=== PATIENT | male | born 1960 | race Caucasian/White ===

== ENCOUNTER → 2025-03-01 08:15 | Outpatient (REF) | payer SELFPAY | LOC: HWRAD 08:15 | PROVIDERS: ATTENDING PHYSICIAN Student in an Organized Health Care Education/Training Program; FAMILY PHYSICIAN Physician Assistant Medical | DX: R06.02 Shortness of breath (principal) | CPT/HCPCS: 75571 ==

== ENCOUNTER → 2025-03-03 08:06 | Outpatient (REF) | payer OTHER, SELFPAY | LOC: HWRCS 08:06 | PROVIDERS: ATTENDING PHYSICIAN Student in an Organized Health Care Education/Training Program; FAMILY PHYSICIAN Physician Assistant Medical | DX: R06.02 Shortness of breath (principal) | CPT/HCPCS: 93306 ==

== ENCOUNTER 2025-03-16 12:57 | Inpatient (IN) | payer OTHER, SELFPAY ==
[2025-03-16] VITALS (7 sets, daily range): BP systolic 118–152; BP diastolic 68–89; BMI 36.3
[2025-03-16 11:48] LABS: Hematocrit 42.5 % (39.0-52.0); Hemoglobin 14.9 g/dL (13.0-18.0); Mean Corp Hgb Conc. 35.1 g/dL (33.0-37.0); Mean Corpuscular Volume 84.8 fL (80.0-94.0); Nucleated Red Blood Cells % 0 % (-); Platelet Count 217 10^3/uL (130-400); Red Cell Dist. Width 12.3 % (11.5-14.5)
--- NOTE | 2025-03-16 11:50 | W.PN.CD ---
Addendum entered and electronically signed by Dillon Borrero MD 03/16/25 13:37:
I saw and evaluated the patient, and I provided the substantive portion of the medical decision making.
I reviewed and agree with the note by Nara Horvath and it accurately reflects our care.
I personally performed the medical decision making of the this encounter and my assessment and plan is below:
65-year-old presented for evaluation of dyspnea on exertion. Stress echocardiogram he had a high risk result with abnormal EKG changes and reproducible symptoms, inferior wall not fully evaluated.
Regular rate and rhythm with normal S1-S2 no murmur exams were appreciated lungs were clear to auscultation bilaterally is alert and oriented x 3 no lower extremity edema was noted.
Stress echocardiogram reviewed above.
Dyspnea on exertion with chest tightness: Suspicious for ischemic etiology, high risk stress test result above. Referred for urgent catheterization. Aspirin to be given now. Further OMT pending results.
Hyperlipidemia: Continue high-dose statin.
Hypertension: Typically on hydrochlorothiazide can transition to OMT depending on cath result.
Plan discussed with Dr. Stephens who agrees for catheterization today.
Original Note:
Today's Communication / Plan
-
*SEE SCANNED H&P*
Cardiac catheterization today
Impression / Plan
-
I/P: 65M with HTN presented as an outpatient with [facility]. Stress echocardiogram test revealed high risk. He is an aggressive non smoker and does not consume EtOH.
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
High risk stress test
- Inferior wall cannot be seen, significant EKG changes with chest pain
- Echocardiogram as below without acute findings
- Cardiac catheterization today
Dyslipidemia
- 08/2024: TC 173, HDL 29, LDL 118, TG 145
- Rosuvastatin 20 mg started after calcium score
Elevated coronary artery calcium score, started on ASA and rosuvastatin 20 mg
HTN, HCTZ held, follow
SUBJECTIVE:
Denies CP, dizziness, and SOB.
DATA:
TTE, 03/03/2025:
1. Left ventricular ejection fraction is normal with an ejection fraction of 57 % by Mann's biplane method of discs.
2. Right ventricular size and systolic function are within normal limits.
3. No significant valvular disease.
4. There are no prior studies available for comparison.
CT Coronary Calcium Score, 03/01/2025:
Total 1802.53 (LM to 32.76, LAD 308.26, LCx 257.19, RCA 96.56, PDA 17.76)
Holter (Rienzi), 10/21/2024:
1. Sinus rhythm throughout the monitoring period without evidence of atrial fibrillation.
2. Rare ventricular ectopy.
3. Rare supraventricular ectopy.
4. No significant pauses of evidence of AV block.
5. Symptoms correlated to sinus rhythm with PACs.
Physical Exam
Vital Signs/Labs
Vital Signs
Temp Pulse Resp BP Pulse Ox
98.5 F 74 16 130/80 98
03/16/25 11:28 03/16/25 11:28 03/16/25 11:28 03/16/25 11:28 03/16/25 11:28
03/16/25 11:40
Physical Exam
Constitutional: No acute distress and Comfortable
EENT: Anicteric and Moist mucous membranes
Cardiovascular: Rhythm & rate is regular and Pedal edema is absent
Respiratory: Respiratory effort normal and Lungs clear to auscul.
GI: Soft, Distention absent, Flat and Non tender
Neuro/Psych: AO x 3
Other: Skin (warm and dry)
Data Reviewed
-
Date of Service: March 16, 2025
EKG: Report Reviewed by me and Ordered by me
Echo: Report Reviewed by me
Labs: Labs Reviewed by me
Old Records: Reviewed
[2025-03-16 12:01] LABS: INR 1.00; PT 13.7 Sec (11.4-14.6)
[2025-03-16 12:05] LABS: ALT (SGPT) 29 U/L (0-50); AST (SGOT) 27 U/L (17-59); Albumin 4.9 g/dl (3.5-5.0); Alkaline Phosphatase 54 U/L (38-126); Blood Urea Nitrogen 14 mg/dl (9-20); Calcium 9.6 mg/dl (8.4-10.2); Carbon Dioxide 28 mmol/L (22-30); Chloride 105 mmol/L (98-107); Glucose 104 mg/dl (70-99); Potassium 4.1 mmol/L (3.5-5.1); Sodium 140 mmol/L (135-145); Total Protein 8.2 g/dl (6.3-8.2); eGFR > 60.00
[2025-03-16 12:17] LABS: Troponin I < 0.012 ng/ml
[2025-03-16] MEDS: LOW STRENGTH ASPIRIN 324 MG PO (12:22)
--- NOTE | 2025-03-16 12:40 | ED.GENMED ---
History of Present Illness
General
Chief Complaint: Chest Pain
Source: patient
Exam Limitations: none
Time Seen by Provider: 03/16/25 12:33
Nursing documentation reviewed up to this point in time: agreed with
Course
Orders/Labs/Results
Orders:
Orders
03/16/25 11:27
Electrocardiogram (*1) Urgent
Reason for Study: Chest Pain
EKG- Treatment ONCE
03/16/25 11:40
Complete Blood Count/With Diff Urgent
Comprehensive Metabolic Panel Urgent
Prothrombin Time Urgent
Troponin I Urgent
03/16/25 11:45
Aspirin Chewable [Low Strength Aspirin] 324 mg PO NOW STA
03/16/25 11:46
Admit/Transfer Patient As Directed
Co-Sign Provider:
Level of Care: Inpatient admission
Assign to:: IVU
Physician / Group: [facility]
Diagnosis: Chest pain
Reason for Hospitalization: High risk stress test with chest pain
Expected length of stay greater than two midnights?: Yes
ELOS- Estimated Length of Stay in days: 3
I certify the patient meets the requirements for IP care: Yes
PRN Pain Medication Management As Directed
May give lesser potent ordered pain med per pt: Yes
preference::
Protocol:: Medication orders for pain may be administered in a
manner that supports deferring to patient preference
when the pt is:
- Requesting an ordered lesser potent pain medication.
Least to most potent pain medications are defined
as: acetaminophen < NSAID < tramadol < opioids
(morphine, oxycodone, hydromorphone).
- Requesting a lesser dose of the same medication IF
ORDERED.
- Requesting a less intrusive route of administration
if both routes are prescribed by the provider (PO <
IV).
03/16/25 11:47
Code Status As Directed
Resuscitation Status: Full Code
03/16/25 12:31
Fentanyl Citrate/Pf [Sublimaze] 100 mcg .ROUTE .STK-MED ONE
Heparin 10,000 units .ROUTE .STK-MED ONE
Heparin 1000 Units/500 ml [Heparin] 1,000 units in 500 ml .ROUTE .STK-MED
Heparin Sodium,Porcine/Ns/Pf [Heparin 2000 Units/1000 ml] 2,000 unit in 1,000 ml .ROUTE .STK-MED
Lidocaine HCl/Pf [Xylocaine-Mpf 1% Vial] 50 mg .ROUTE .STK-MED ONE
Midazolam HCl [Versed] 2 mg .ROUTE .STK-MED ONE
Verapamil Injectable [Isoptin/Verapamil Injection] 5 mg .ROUTE .STK-MED ONE
03/16/25 12:32
Nitroglycerin [Tridil] 1,500 mcg .ROUTE .STK-MED ONE
Abnormal Lab Results
03/16/25
11:40
Glucose 104 H mg/dl
(70-99)
03/16/25 11:40
03/16/25 11:40
Vital Signs
Initial and Last Documented VS:
Initial Vital Signs
Temp Pulse Resp BP Pulse Ox
36.9 C 74 16 130/80 98
03/16/25 11:28 03/16/25 11:28 03/16/25 11:28 03/16/25 11:28 03/16/25 11:28
Last Documented Vital Signs
Temp Pulse Resp BP Pulse Ox
36.9 C 67 18 118/68 98
03/16/25 11:28 03/16/25 12:15 03/16/25 12:15 03/16/25 12:12 03/16/25 11:28
*Pulse Oximetry
SaO2: 98
Oxygen Mode of Delivery: Room air
ED Attending Note
-
Portions of this chart may have been created with voice recognition software.� Occasional wrong word or��sound alike� substitutions may have occurred due to the inherent limitations of voice recognition software.
Discharge Plan
Departure
Patient Disposition: Admit
Date of Disposition: 03/16/25
Time of Disposition: 12:35
Admit to: Telemetry
Admit to doctor: vaibhav
Presentation/result/management discussed w/ accepting MD/DO: vaibhav
Discharge Problem:
Positive cardiac stress test
Prescriptions:
No Action
multivitamin Tablet
1 tab PO DAILY
aspirin 81 mg Tablet,Chewable
81 mg PO DAILY
hydrochlorothiazide 25 mg tablet
25 mg PO DAILY
rosuvastatin 20 mg tablet
20 mg PO HS
[id number] [krill oil] 960-38-49-50 mg Capsule
2 cap PO DAILY
Referrals:
Asif Purvis PA-C [Family Provider]
Interventions
Interventions:
*Risk Screen - Suicide Last Done: 03/16/25 12:17
*General Assessment Last Done: 03/16/25 12:17
*Neglect/Abuse Screening Last Done: 03/16/25 12:17
*ED- Fall Risk Assessment Last Done: 03/16/25 12:17
*ED COVID-19 Vaccine History Last Done: 03/16/25 12:17
ED- Cardiac Assessment Last Done: 03/16/25 12:20
Discharge Date and Time
Print Language: PASHTO
[2025-03-16 13:36] LABS: ACT-LR - POC 356 Seconds (116-155)
[2025-03-16 14:05] LABS: ACT-LR - POC 366 Seconds (116-155)
[2025-03-16 14:15] LABS: ACT-LR - POC 265 Seconds (116-155)
--- NOTE | 2025-03-16 14:21 | ITS.CL.ANGIO ---
Ditch Repairer - Angioplasty
Angioplasty
Procedure Report:
CARDIAC CATHETERIZATION REPORT
Date of Procedure: 03/16/2025
Referring: Mini Borrero M.D.
INDICATION: Accelerating angina, high risk stress test.
PROCEDURE:
1. Left heart catheterization.
2. Coronary angiography.
3. Successful PCI of the culprit mid RCA lesion.
4. Successful PCI of the proximal RPDA.
5. Successful PCI of the mid RPDA.
A total of 76 minutes of procedural/moderate sedation was utilized. An independent medical terminologist was present to assist with and help manage the patient's level of consciousness and physiologic status.
ACCESS:
1. 6 [place] right radial artery using a modified Seldinger technique.
CATHETERS:
1. 5 [place] JR4.
2. 5 [place] JL 3.5.
3. 6 [place] EBU 3.5 guiding catheter.
4. 6 [place] JR4 guiding catheter.
HEMODYNAMIC DATA
Weight (kg): 117.9
AO (s/d/x, mmHg): 116/73/91
LV (s/x mmHg): 121/15
LEFT VENTRICULOGRAPHY: Not performed.
CORONARY ANGIOGRAPHY
Dominance: Right.
Left Main: Normal size, bifurcating vessel. There is no coronary artery disease.
LAD: Normal size vessel giving rise to 1 significant diagonal. There is a 50-60% lesion in the mid LAD immediately after the origin of the first diagonal.
Ramus: Congenitally absent.
Circumflex: Normal size, nondominant vessel giving rise to 2 obtuse marginals. OM1 is a small to medium size (1.5-2 mm) vessel with minor luminal irregularities. The second obtuse marginal is a medium to large size vessel supplying the majority
of the inferolateral wall. There is a 30-40% lesion in the proximal margin of OM1.
RCA: Large size, dominant vessel with a significant posterolateral arcade. There is a culprit 90% lesion in the mid RCA. There is a 70-80% lesion in the proximal RPDA. There is a hazy, 75% lesion in the mid RPDA.
INTERVENTION(S)
1. Successful IFR of the 50-60% mid LAD lesion, demonstrating nonocclusive disease (IFR = 0.93).
2. Successful PCI of the culprit 90% mid RCA lesion (Medtronic [place] 3.0 x 18 GENE, postdilated with a 3.0 NC balloon) with reduction in stenosis to 0%, maintaining TOMAS-3 flow.
3. Successful PCI of the hazy 75% mid RPDA lesion (Medtronic [place] 2.0 x 12 GENE) with reduction in stenosis to 0%, maintaining TOMAS-3 flow.
4. Successful PCI of the 70-80% proximal RPDA lesion (Medtronic [place] 2.5 x 18 GENE, postdilated with a 2.5 NC balloon) with reduction in stenosis to 0%, maintaining TOMAS-3 flow.
Narrative:
The decision was made to perform physiologic testing. The diagnostic catheter was removed over a wire and exchanged for a(n) 6 [place] EBU 3.5 guiding catheter. The guiding catheter was advanced into the ascending aorta and seated in the left main
coronary artery. Additional heparin was given to obtain an ACT greater than 250 seconds. An iFR wire was zeroed outside of the body, then inserted into the guiding sheath. The wire was advanced and the transducer was normalized just outside of the
guiding catheter tip. The wire was advanced into the mid LAD, beyond the 50-60% lesion. Three iFR measurements were taken. The lesion was determined to be nonocclusive (0.93).
We then turned our attention to the right coronary artery. The decision was made to proceed with percutaneous coronary intervention. The 6 [place] EBU 3.5 guiding catheter was removed over a wire and a 6Fr JR4 guiding catheter was advanced to the
aortic root and seated in the right coronary artery. Additional heparin was given and a Power Turn Flex wire was advanced into the distal RPDA. The 90% culprit mid RP CA lesion was predilated with a 2.0 x 12 semi-compliant balloon to 12 zuly. The
balloon was then advanced and the 70-80% proximal RPDA lesion was treated with angioplasty to 12 zuly.
Initially, we attempted to treat the distal lesion first. The semi-compliant balloon was removed and a Medtronic [place] 2.5 x 18 drug-eluting stent was advanced. Unfortunately, the stent would not advance beyond the culprit lesion in spite
of predilation. The stent was withdrawn and the GuideLiner was advanced over the 2.0 x 12 semicompliant balloon. Once again, the 2.5 x 18 drug-eluting stent was advanced, this time passing by the culprit lesion but failed to cross the proximal
RPDA lesion due to guide support and push ability. The decision was made to withdraw the stent and treat the culprit mid RCA lesion first.
A Medtronic [place] 3.0 x 18 drug-eluting stent was advanced into the mid RCA. After confirming position, the stent was deployed at 12 zuly. The stent balloon was removed. A 3.0 x 12 noncompliant balloon was advanced into the stent and the
stent was postdilated to 15 zuly. After postdilated the stent, the GuideLiner was used to sheath the balloon and advanced into the distal RCA/proximal RPDA.
With the GuideLiner in place, we were able to more keenly observe the RPDA lesions, also getting a better sense of a hazy, 75% lesion in the mid RPDA. The decision was made to also treat the mid RPDA lesion. The 2.0 x 12 semicompliant balloon was
advanced into the mid RPDA and the lesion was dilated to 12 zuly. We took this opportunity to more aggressively dilate the proximal RPDA lesion as well.
The semicompliant balloon was withdrawn and a Medtronic [place] 2.0 x 12 drug-eluting stent was advanced into the mid RPDA. The stent was deployed at 12 atmospheres. The stent balloon was removed.
We then turned our attention to the proximal RPDA lesion. The Medtronic [place] 2.5 x 18 drug-eluting stent was advanced for a third time, this time passing into the proximal RPDA with relative ease. Meticulous care was taken while
positioning the stent, ensuring that the entire length of the proximal RPDA lesion was covered. When we were satisfied with our position, the stent was deployed to 12 zuly. A 2.5 x 12 noncompliant balloon was advanced into the stent and the stent
was postdilated to 14 atmospheres.
Angiography was performed in orthogonal views, confirming good stent expansion and an excellent angiographic result. The coronary wire was withdrawn and the guide was disengaged from the artery. The catheter was removed over a standard J-wire.
Closure Device: Vascular band.
Radiation (mGy): 1675.19
DAP (cm2.Gy): 101.66
Fluoroscopy time (minutes): 14.3
CONCLUSIONS
1. Right dominant circulation with a 30-40% lesion in the proximal margin of OM1, a nonocclusive 50-60% lesion in the mid LAD (IFR = 0.93) and tandem occlusive lesions in the RCA, notably a 90% culprit mid RCA lesion status post successful PCI
(Medtronic [place] 3.0 x 18 GENE, postdilated with a 3.0 NC balloon), a 70-80% proximal RPDA lesion status post successful PCI (Medtronic [place] 2.5 x 18 GENE, postdilated with a 2.5 NC balloon) and a hazy, 75% mid RPDA lesion status post
successful PCI (Medtronic [place] 2.0 x 12 GENE), with reduction in all treated stenoses to 0%, maintaining TOMAS-3 flow.
2. Mildly elevated filling pressures (LVEDP = 15 mmHg at 117.9 kg).
RECOMMENDATIONS:
1. Expectant management after cardiac catheterization via right radial approach.
2. Limited weight bearing on the right for one week.
3. Dual antiplatelet therapy with aspirin and clopidogrel for at least 12 months, followed by aspirin indefinitely.
4. Aggressive secondary prevention with high-dose, high potency statin. Goal LDL <55.
5. OMT/GDMT as hemodynamics will tolerate.
6. Transthoracic echocardiogram ordered and pending.
7. Referral to cardiac rehab.
Copy to: Mini Borrero M.D., Neel Phoenix M.D., Asif Purvis PA-C
Tre Dc DO, FACC, FACP
--- NOTE | 2025-03-16 15:03 | PTCARENOTE ---
Rec'd report from Michela; rec'd pt AAOX3 w/no c/o CP or SOB; Pt w/VSS w/HR 70's & SR on telemetry monitoring. Pt w/R radial band intact w/no signs or symptoms of bleeding or hematoma. Pt instructed on RUE restrictions & bedrest restriction for 1 hr
post cath. Pt verbalized his understanding. Pt w/call esquivel within reach & plan of care ongoing.
--- NOTE | 2025-03-16 16:09 | CM ---
Chart reviewed. Patient is independent of ADLS, lives with his in a split level, [address], 0 DME. Plan is to return home. CM to follow
[2025-03-16] MEDS: CRESTOR 20 MG PO (22:06)
[2025-03-17 04:10] VITALS: BP 132/74
[2025-03-17 04:44] LABS: Hematocrit 38.1 % (39.0-52.0); Hemoglobin 13.4 g/dL (13.0-18.0); Mean Corp Hgb Conc. 35.2 g/dL (33.0-37.0); Mean Corpuscular Volume 84.5 fL (80.0-94.0); Platelet Count 194 10^3/uL (130-400); Red Cell Dist. Width 12.3 % (11.5-14.5)
[2025-03-17 05:06] LABS: Blood Urea Nitrogen 11 mg/dl (9-20); Calcium 8.8 mg/dl (8.4-10.2); Carbon Dioxide 26 mmol/L (22-30); Chloride 107 mmol/L (98-107); Estimated Creatinine Clearance > 125 ml/min; Glucose 106 mg/dl (70-99); HDL Cholesterol 27 mg/dl; LDL Cholesterol, Calculated 60 mg/dl; Potassium 3.6 mmol/L (3.5-5.1); Sodium 140 mmol/L (135-145); Very Low Density Lipoprotein 25 mg/dl (0-30); eGFR > 60.00
[2025-03-17 06:50] VITALS: BP 124/80
--- NOTE | 2025-03-17 08:03 | W.PN.CD ---
Today's Communication / Plan
-
OK for discharge
DAPT and statin
Cardiac rehab
Impression / Plan
-
I/P: 65M with HTN presented as an outpatient with [facility]ST[facility]. Stress echocardiogram test revealed high risk. He is an aggressive non smoker and does not consume EtOH.
Primary Rn Hemodialysis Charge: Dr. Phoenix
Obstructive CAD with high risk stress test
- [facility] 03/17/25: 50-60% mid LAD, 30-40% proximal OM1, 90% mid RCA, 70-80% prox RPDA 75% mid RPDA; s/p GENE x3 to RCA lesions
- Continue ASA + Plavix for 6-12 months
- Continue Rosuvastatin with goal LDL <55
- Cardiac rehab
- No role for BB as this was not ACS; if he has symptoms from residual lesions will add on
Hypertension
- Resume home HCTZ on discharge
SUBJECTIVE:
Asymptomatic.
Physical Exam
Vital Signs/Labs
Vital Signs
Temp Pulse Resp BP Pulse Ox
98.0 F 88 16 124/80 96
03/17/25 06:50 03/17/25 08:00 03/17/25 06:50 03/17/25 06:50 03/17/25 06:50
03/16/25 03/17/25 03/18/25
06:59 06:59 06:59
Actual Weight 260 lb
03/17/25 04:18
03/17/25 04:18
PT 13.7 Sec (11.4-14.6) 03/16/25 11:40
INR 1.00 03/16/25 11:40
Triglycerides 128 mg/dl (10-149) 03/17/25 04:18
LDL Cholesterol, Calc 60 mg/dl 03/17/25 04:18
VLDL Cholesterol, Calc 25 mg/dl (0-30) 03/17/25 04:18
HDL Cholesterol 27 mg/dl 03/17/25 04:18
LAB Results
03/16/25
11:40
Troponin I < 0.012
Physical Exam
Constitutional: No acute distress and Comfortable
Cardiovascular: Rhythm & rate is regular, Pedal edema is absent, S1S2 is normal and Murmur/rub/gallop absent
Respiratory: Respiratory effort normal and Lungs clear to auscul.
Neuro/Psych: AO x 3
Other: Cath Site (no swelling or erythema)
Data Reviewed
-
Date of Service: March 17, 2025
Medical Decision Making: Reviewed Test Results, Independent Historian Assessment, Test Interpretation and Review of Case with other Provider
EKG: Tracing Personally Visualized and interpreted
Echo: Report Reviewed by me
Labs: Labs Reviewed by me
[2025-03-17] MEDS: LOW STRENGTH ASPIRIN 81 MG PO (08:22)
[2025-03-17] MEDS: FLUSH (NSS) 1 FLUSH IV (08:23)
[2025-03-17] MEDS: PLAVIX 75 MG PO (08:23)
[2025-03-17] MEDS: THERAGRAN 1 TABLET PO (08:23)
[2025-03-17 09:07] LABS: Glycohemoglobin (HgbA1c) 5.3 % (4.0-5.6)
--- NOTE | 2025-03-17 09:39 | PTCARENOTE ---
Patient resting in bed this morning, denies any chest pain or sob. Dressing right wrist is dry and intact with a strong radial pulse. Patient is scheduled for discharge home today.
[2025-03-17 10:53] VITALS: BP 145/71
--- NOTE | 2025-03-17 11:32 | PTCARENOTE ---
Reviewed discharge instructions with the patient and he states his understanding. Aware of new medications, post cath restrictions and follow up appointments. Patient drove himself here but is aware that he may not drive for 24 hours after
anesthesia given yesterday afternoon. Had family member pick him up and they will arrange to bring his car home. Patient discharged home.
--- NOTE | 2025-03-17 12:25 | W.DS.TRANS ---
DC Summary - Economic Specialist
-
Discharge Instructions:
Discharge Diagnosis/Procedures Angioplasty with stent to RCA x 3
Diet Low Cholesterol
Driving Restrictions No driving for 24 hours
Other Services Cardiac Rehab
Instructions:
Stand-Alone Forms: DC Instructions- Cath/EP Lab
Return to Work
Changes to Home Medications: Yes
Discharge Medications:
DC Medications w/original date entered in [employer]
aspirin 81 mg chewable tablet 81 mg PO DAILY 03/16/25
hydrochlorothiazide 25 mg tablet 25 mg PO DAILY Blood Pressure 03/16/25
krill [id number] 300 mg-90 mg-24 mg-50 mg capsule (krill oil) 2 cap PO DAILY 03/16/25
multivitamin 1 tab PO DAILY 03/16/25
rosuvastatin 20 mg tablet 20 mg PO HS 03/16/25
clopidogrel 75 mg tablet 75 mg PO DAILY #90 tabs 03/17/25
nitroglycerin 0.4 mg sublingual tablet 0.4 mg sublingual [id number] PRN chest pain #25 tabs 03/17/25
Home Medication Changes
new to plavix, nitro
Pending Results: No
== END 2025-03-17 11:20 | disposition home or self-care (01) | DRG 322 ==
LOC: IVU 12:57
PROVIDERS: Emergency Medicine; Internal Medicine Cardiovascular Disease; Nurse Practitioner Adult Health; Nurse Practitioner Gerontology; ADMITTING PHYSICIAN Internal Medicine Cardiovascular Disease; FAMILY PHYSICIAN Physician Assistant Medical
PROC: 027136Z Dilation of Coronary Artery, Two Arteries with Three Drug-eluting Intraluminal Devices, Percutaneous Approach (ICD-10-PCS; 2025-03-16)
PROC: B2111ZZ Fluoroscopy of Multiple Coronary Arteries using Low Osmolar Contrast (ICD-10-PCS; 2025-03-16)
PROC: 4A023N7 Measurement of Cardiac Sampling and Pressure, Left Heart, Percutaneous Approach (ICD-10-PCS; 2025-03-16)
PROC: 4A033BC Measurement of Arterial Pressure, Coronary, Percutaneous Approach (ICD-10-PCS; 2025-03-16)
DX: I25.110 Atherosclerotic heart disease of native coronary artery with unstable angina pectoris (principal); I10 Essential (primary) hypertension; E78.5 Hyperlipidemia, unspecified
CPT/HCPCS: 80048; 80053; 80061; 83036; 84484; 85025; 85027; 85347; 85610; 93005; 93017; 93350; 93458; 93799; 99152; 99153; 99285; C1725; C1769; C1874; C1894; C9600; C9601; Q9967

== ENCOUNTER 2025-05-13 16:47 | Outpatient (RCR) | payer OTHER, SELFPAY | END 2025-05-13 23:59 | disposition home or self-care (01) | LOC: CRHB 16:47 | PROVIDERS: ATTENDING PHYSICIAN Internal Medicine Cardiovascular Disease | DX: Z95.5 Presence of coronary angioplasty implant and graft (principal) | CPT/HCPCS: 93797; 93798 ==

== ENCOUNTER 2025-06-10 16:59 | Outpatient (RCR) | payer OTHER, SELFPAY ==
[2025-06-08 08:44] LABS: HDL Cholesterol 34 mg/dl; LDL Cholesterol, Calculated 44 mg/dl; Very Low Density Lipoprotein 13 mg/dl (0-30)
== END 2025-06-10 17:07 | disposition home or self-care (01) ==
LOC: CRHB 16:59
PROVIDERS: ATTENDING PHYSICIAN Internal Medicine Cardiovascular Disease; FAMILY PHYSICIAN Physician Assistant Medical
DX: I25.10 Atherosclerotic heart disease of native coronary artery without angina pectoris (principal); Z95.5 Presence of coronary angioplasty implant and graft
CPT/HCPCS: 80061; 93797; 93798